=== PATIENT | male | born 1965 | race Hispanic/Latino ===

== ENCOUNTER 2018-07-15 05:16 | Emergency (ER) | payer BC ==
[2018-07-15 05:38] LABS: Absolute Lymphocytes (CBC) 2.8 K/uL (0.7-4.9); Absolute Monocytes 0.5 K/uL (0.1-1.3); Absolute Neutrophil 4.4 K/uL (1.8-8.0); Basophils % 0.6 % (0-1.3); Eosinophils % 1.7 % (0-4.4); Hematocrit 43.8 % (39.6-49.0); Lymphocytes % 35.8 % (15.3-44.8); MPV 8.8 fL (7.6-11.3); Monocytes % 6.8 % (3.3-12.3); RBC Red Blood Cell Count 5.06 M/uL (4.33-5.43)
[2018-07-15] MEDS ORDERED: NA CHLORIDE 0.9% 1,000 ML ONE (05:45)
[2018-07-15] MEDS ORDERED: KETOROLAC 30 MG/ML INJ ONE (05:45)
[2018-07-15 06:09] LABS: Bilirubin Direct 0.2 mg/dL (0-0.2); Bilirubin Total 1.2 mg/dL (0.2-1.0); Protein, Total 7.6 g/dL (6.4-8.2)
--- NOTE | 2018-07-15 07:11 | ER ---
Nurse's Notes [facility] Name: Luis Seth Age: 52 yrs Sex: Male : 1965 Arrival Date: 07/15/2018 Time: 05:17 Bed 20 Private MD: Diagnosis: Calculus of kidney and ureter Presentation: 07/15 05:25 Presenting complaint: Patient states: he started having constant severe back pain bb radiating to his right groin, with nausea, denies dysuria. Transition of care: patient was not received from another setting of care. Onset of symptoms was July 15, 2018. Risk Assessment: Do you want to hurt yourself or someone else? Patient reports no desire to harm self or others. Initial Sepsis Screen: Does the patient meet any 2 criteria? No. Patient's initial sepsis screen is negative. Does the patient have a suspected source of infection? No. Patient's initial sepsis screen is negative. Care prior to arrival: None. 05:25 Method Of Arrival: Ambulatory bb 05:25 Acuity: VINI 3 bb Historical: - Allergies: 05:27 No Known Allergies; bb - Home Meds: 05:27 Doxycycline Oral [Active]; bb - PMHx: 05:27 tooth abscess; bb - PSHx: 05:27 Cholecystectomy; bb - Immunization history:: Adult Immunizations up to date. - Social history:: Smoking status: Patient uses tobacco products, denies chronic smoking, but will smoke occasionally, Patient uses alcohol, occasionally. Patient/guardian denies using street drugs. - Ebola Screening: : No symptoms or risks identified at this time. Screenin:41 Abuse screen: Denies threats or abuse. Denies injuries from another. Nutritional rr5 screening: No deficits noted. Tuberculosis screening: No symptoms or risk factors identified. Fall Risk IV access (20 points). Total Guajardo Fall Scale indicates No Risk (0-24 pts). Assessment: 05:25 General: Appears in no apparent distress. uncomfortable, Behavior is calm, cooperative, rr5 appropriate for age. Pain: Complains of pain in right flank Pain radiates to back and abdomen Pain currently is 10 out of 10 on a pain scale. Quality of pain is described as aching, Pain began suddenly, Is continuous. 05:25 Neuro: Level of Consciousness is awake, alert, obeys commands, Oriented to person, rr5 place, time, situation, Appropriate for age. Cardiovascular: Capillary refill < 3 seconds Patient's skin is warm and dry. Respiratory: Airway is patent Respiratory effort is even, unlabored, Respiratory pattern is regular, symmetrical. GI: Abdomen is round. : Reports pain in right flank(s), in lower back Pain is 10 out of 10 on a pain scale. Denies burning with urination, cramping. EENT: No signs and/or symptoms were reported regarding the EENT system. Derm: Skin is intact, Skin temperature is warm. Musculoskeletal: Capillary refill < 3 seconds, Range of motion: intact in all extremities. 05:50 Reassessment: Patient appears in no apparent distress at this time. Patient is alert, rr5 oriented x 3, equal unlabored respirations, skin warm/dry/pink. Patient denies pain at this time. Patient states feeling better. Patient states symptoms have improved. 06:30 Reassessment: Patient appears in no apparent distress at this time. Patient is alert, rr5 oriented x 3, equal unlabored respirations, skin warm/dry/pink. pain free. awaiting for CT result. no complaints made. Patient denies pain at this time. Patient states feeling better. Patient states symptoms have improved. 07:22 Reassessment: Patient appears in no apparent distress at this time. Patient and/or tw2 family updated on plan of care and expected duration. Pain level reassessed. Patient is alert, oriented x 3, equal unlabored respirations, skin warm/dry/pink. Patient denies pain at this time. Patient states feeling better. Patient states symptoms have improved. Vital Signs: 05:27 BP 156 / 74; Pulse 56; Resp 18 S; Temp 97.8(O); Pulse Ox 100% on R/A; Weight 81.65 kg bb (R); Height 5 ft. 7 in. (170.18 cm) (R); Pain 10/10; 05:50 BP 105 / 58; Pulse 59; Resp 17; Pulse Ox 99% ; Pain 0/10; rr5 06:30 BP 105 / 61; Pulse 58; Resp 17; Pulse Ox 99% ; Pain 0/10; rr5 07:21 BP 115 / 65; Pulse 62; Resp 17; Pulse Ox 99% on R/A; Pain 0/10; tw2 05:27 Body Mass Index 28.19 (81.65 kg, 170.18 cm) bb ED Course: 05:17 Patient arrived in ED. es 05:26 Triage completed. bb 05:27 Arm band placed on Patient placed in an exam room, on a stretcher, on pulse oximetry. bb Family accompanied patient. 05:30 Robin Good, RN is Primary Nurse. rr5 05:30 Inserted saline lock: 20 gauge in left antecubital area, using aseptic technique. Blood rr5 collected. 05:[address] via wheelchair. rr5 05:55 CT completed. Patient tolerated procedure well. Patient moved back from CT. eh 06:00 Dianne Navarro FNP-C is PHCP. kb 06:00 Iftikhar Cagle MD is Attending Physician. kb 06:01 CT Stone Protocol In Process Unspecified. EDMS 06:[address] Scan. rr5 07:13 Primary Nurse role handed off by Robin Good RN tw2 07:13 Daniela Guzman, RN is Primary Nurse. tw2 07:22 No provider procedures requiring assistance completed. IV discontinued, intact, tw2 bleeding controlled, No redness/swelling at site. Pressure dressing applied. 07:23 . tw2 Administered Medications: 05:37 Drug: NS 0.9% 1000 ml Route: IV; Rate: 1 bolus; Site: left antecubital; rr5 06:39 Follow up: Response: No adverse reaction; IV Status: Completed infusion; IV Intake: rr5 1000ml 05:38 Drug: TORadol 30 mg Route: IVP; Site: left antecubital; rr5 06:36 Follow up: Response: No adverse reaction; Marked relief of symptoms rr5 Intake: 06:39 IV: 1000ml; Total: 1000ml. rr5 Outcome: 07:10 Discharge ordered by . kb 07:23 Discharged to home ambulatory, with significant other. tw2 07:23 Condition: stable 07:23 Discharge instructions given to patient, significant other, Instructed on discharge instructions, follow up and referral plans. no drinking with medication, no driving heavy equipment, medication usage, Demonstrated understanding of instructions, follow-up care, medications, Prescriptions given X 5 07:24 Patient left the ED. tw2 Signatures: Dispatcher [employer] EDIL Dianne Navarro FNP-C FNP-CkLorraine Hansen Ervin eh Ballard, Brenda, RN RN bb Daniela Guzman RN RN tw2 Robin Good RN RN rr5 Corrections: (The following items were deleted from the chart) 06:33 06:29 Awaiting lab results, Awaiting CT Scan, rr5 rr5
--- NOTE | 2018-07-15 07:11 | EDPHYS ---
Physician Documentation [facility] Name: Luis Seth Age: 52 yrs Sex: Male : 1965 Arrival Date: 07/15/2018 Time: 05:17 Bed 20 Private MD: ED Physician Iftikhar Cagle HPI: 07/15 06:25 This 52 yrs old Male presents to ER via Ambulatory with complaints of Back kb Pain, Flank Pain, Abdominal Pain, Nausea. 06:25 The patient complains of pain in the right flank. The pain radiates to the groin, right kb inguinal area and right iliac crest. Onset: The symptoms/episode began/occurred this morning, at 04:00. Modifying factors: The symptoms are alleviated by nothing. the symptoms are aggravated by nothing. Associated signs and symptoms: The patient has no apparent associated signs or symptoms. Severity of pain: At its worst the pain was moderate in the emergency department the pain has resolved. The patient has not experienced similar symptoms in the past. The patient has not recently seen a physician. Pt reports right flank pain that woke him up at 0400 this morning. Pain radiates around to right groin. Denies urinary symptoms or history of kidney stone. States he had a momentary pain similar to this last week, but it only lasted a few minutes and never came back until today. Pain is resolved at this time. . Historical: - Allergies: 05:27 No Known Allergies; bb - Home Meds: 05:27 Doxycycline Oral [Active]; bb - PMHx: 05:27 tooth abscess; bb - PSHx: 05:27 Cholecystectomy; bb - Immunization history:: Adult Immunizations up to date. - Social history:: Smoking status: Patient uses tobacco products, denies chronic smoking, but will smoke occasionally, Patient uses alcohol, occasionally. Patient/guardian denies using street drugs. - Ebola Screening: : No symptoms or risks identified at this time. ROS: 06:24 Constitutional: Negative for fever, chills, and weight loss, ENT: Negative for injury, kb pain, and discharge, Neck: Negative for injury, pain, and swelling, Cardiovascular: Negative for chest pain, palpitations, and edema, Respiratory: Negative for shortness of breath, cough, wheezing, and pleuritic chest pain, : Negative for injury, bleeding, discharge, and swelling, MS/Extremity: Negative for injury and deformity, Skin: Negative for injury, rash, and discoloration, Neuro: Negative for headache, weakness, numbness, tingling, and seizure. 06:24 Abdomen/GI: Positive for abdominal pain. 06:24 Back: Positive for flank pain, on the right. Exam: 06:24 Constitutional: This is a well developed, well nourished patient who is awake, alert, kb and in no acute distress. Head/Face: Normocephalic, atraumatic. ENT: Nares patent. No nasal discharge, no septal abnormalities noted. Tympanic membranes are normal and external auditory canals are clear. Oropharynx with no redness, swelling, or masses, exudates, or evidence of obstruction, uvula midline. Mucous membranes moist. Neck: Trachea midline, no thyromegaly or masses palpated, and no cervical lymphadenopathy. Supple, full range of motion without nuchal rigidity, or vertebral point tenderness. No Meningismus. Chest/axilla: Normal chest wall appearance and motion. Nontender with no deformity. No lesions are appreciated. Cardiovascular: Regular rate and rhythm with a normal S1 and S2. No gallops, murmurs, or rubs. Normal PMI, no JVD. No pulse deficits. Respiratory: Lungs have equal breath sounds bilaterally, clear to auscultation and percussion. No rales, rhonchi or wheezes noted. No increased work of breathing, no retractions or nasal flaring. Abdomen/GI: Soft, non-tender, with normal bowel sounds. No distension or tympany. No guarding or rebound. No evidence of tenderness throughout. Skin: Warm, dry with normal turgor. Normal color with no rashes, no lesions, and no evidence of cellulitis. MS/ Extremity: Pulses equal, no cyanosis. Neurovascular intact. Full, normal range of motion. Neuro: Awake and alert, GCS 15, oriented to person, place, time, and situation. Cranial nerves II-XII grossly intact. Motor strength 5/5 in all extremities. Sensory grossly intact. Cerebellar exam normal. Normal gait. Vital Signs: 05:27 BP 156 / 74; Pulse 56; Resp 18 S; Temp 97.8(O); Pulse Ox 100% on R/A; Weight 81.65 kg bb (R); Height 5 ft. 7 in. (170.18 cm) (R); Pain 10/10; 05:50 BP 105 / 58; Pulse 59; Resp 17; Pulse Ox 99% ; Pain 0/10; rr5 06:30 BP 105 / 61; Pulse 58; Resp 17; Pulse Ox 99% ; Pain 0/10; rr5 07:21 BP 115 / 65; Pulse 62; Resp 17; Pulse Ox 99% on R/A; Pain 0/10; tw2 05:27 Body Mass Index 28.19 (81.65 kg, 170.18 cm) bb MDM: 05:25 Patient medically screened. tw4 06:24 Data reviewed: vital signs, nurses notes. Data interpreted: Pulse oximetry: on room air kb is 99 %. Interpretation: normal. 07:08 Counseling: I had a detailed discussion with the patient and/or guardian regarding: the kb historical points, exam findings, and any diagnostic results supporting the discharge/admit diagnosis, lab results, radiology results, the need for outpatient follow up, a family practitioner, a urologist, to return to the emergency department if symptoms worsen or persist or if there are any questions or concerns that arise at home. 07/15 05:27 Order name: Basic Metabolic Panel; Complete Time: 06:12 07/15 05:27 Order name: CBC with Diff; Complete Time: 06:06 07/15 05:27 Order name: Creatinine for Radiology; Complete Time: 06:06 07/15 05:27 Order name: Hepatic Function; Complete Time: 06:12 07/15 05:27 Order name: Lipase; Complete Time: 06:12 07/15 05:27 Order name: CT Stone Protocol 07/15 05:27 Order name: IV Saline Lock; Complete Time: 05:37 07/15 05:27 Order name: Labs collected and sent; Complete Time: 05:37 tw4 Administered Medications: 05:37 Drug: NS 0.9% 1000 ml Route: IV; Rate: 1 bolus; Site: left antecubital; rr5 06:39 Follow up: Response: No adverse reaction; IV Status: Completed infusion; IV Intake: rr5 1000ml 05:38 Drug: TORadol 30 mg Route: IVP; Site: left antecubital; rr5 06:36 Follow up: Response: No adverse reaction; Marked relief of symptoms rr5 Disposition: 18:21 Co-signature as Attending Physician, Iftikhar Cagle MD I agree with the assessment and tw4 plan of care. Disposition: 07/15/18 07:10 Discharged to Home. Impression: Calculus of kidney and ureter. - Condition is Stable. - Discharge Instructions: Kidney Stones, [id number], Dietary Guidelines to Help Prevent Kidney Stones. - Prescriptions for Tylenol- Codeine #3 300-30 mg Oral Tablet - take 1 tablet by ORAL route every 6 hours As needed; 15 tablet. Zofran 4 mg Oral Tablet - take 1 tablet by ORAL route every 6 hours As needed; 20 tablet. Flomax 0.4 mg Oral Capsule, Sust. Release 24 hr - take 1 capsule by ORAL route once daily 1/2 hour following the same meal each day; 10 capsule. Diclofenac Sodium 75 mg Oral Tablet, Delayed Release (E.C.) - take 1 tablet by ORAL route 2 times per day As needed; 30 tablet. Macrobid 100 mg Oral Capsule - take 1 capsule by ORAL route every 12 hours for 7 days; 14 capsule. - Medication Reconciliation Form, Thank You Letter, Antibiotic Education, Prescription Opioid Use, Work release form form. - Follow up: Private Physician; When: 2 - 3 days; Reason: Recheck today's complaints, Continuance of care, Re-evaluation by your physician. Follow up: Emergency Department; When: As needed; Reason: Worsening of condition. Signatures: Dispatcher [employer] EDNE Dianne Navarro, LEILANI PINEDO-Viv Jose RN RN bb Daniela Guzman RN RN tw2 Iftikhar Cagle MD MD tw4 Robin Good RN RN rr5 Corrections: (The following items were deleted from the chart) 07:24 07:10 07/15/2018 07:10 Discharged to Home. Impression: Calculus of kidney and ureter. tw2 Condition is Stable. Discharge Instructions: Kidney Stones, [id number], Dietary Guidelines to Help Prevent Kidney Stones. Prescriptions for Tylenol-Codeine #3 300-30 mg Oral Tablet - take 1 tablet by ORAL route every 6 hours As needed; 15 tablet, Zofran 4 mg Oral Tablet - take 1 tablet by ORAL route every 6 hours As needed; 20 tablet, Flomax 0.4 mg Oral Capsule, Sust. Release 24 hr - take 1 capsule by ORAL route once daily 1/2 hour following the same meal each day; 10 capsule, Diclofenac Sodium 75 mg Oral Tablet, Delayed Release (E.C.) - take 1 tablet by ORAL route 2 times per day As needed; 30 tablet, Macrobid 100 mg Oral Capsule - take 1 capsule by ORAL route every 12 hours for 7 days; 14 capsule. and Forms are Medication Reconciliation Form, Thank You Letter, Antibiotic Education, Prescription Opioid Use. Follow up: Private Physician; When: 2 - 3 days; Reason: Recheck today's complaints, Continuance of care, Re-evaluation by your physician. Follow up: Emergency Department; When: As needed; Reason: Worsening of condition. kb
--- NOTE | 2018-07-15 12:29 | RAD REPORT ---
EXAM DESCRIPTION: CT Abdomen and Pelvis Without Intravenous Contrast CLINICAL HISTORY: The patient is 52 years old and is Male; PAIN TECHNIQUE: Axial computed tomography images of the abdomen and pelvis without intravenous contrast. Sagittal and coronal reformatted images were created and reviewed. This CT exam was performed usi ng one or more of the following dose reduction techniques: automated exposure control, adjustment o f the mA and/or kV according to patient size, and/or use of iterative reconstruction technique. COMPARISON: No relevant prior studies available. FINDINGS: Lung bases: Unremarkable. No mass. No consolidation. ABDOMEN: Liver: The liver is mildly fatty prominent. Gallbladder and bile ducts: Surgical clips are present in the right upper quadrant, consistent w ith previous cholecystectomy. Pancreas: Unremarkable. No ductal dilation. Spleen: Unremarkable. Adrenals: Unremarkable. No mass. Kidneys and ureters: Mild right hydroureteronephrosis present secondary to a 3 mm right UVJ calc ulus. Edema of the right kidney with associated perinephric and periureteral stranding is present. The left kidney is normal. Stomach and bowel: Stomach is minimally fluid filled. The small bowel is normal in caliber. A mo derate amount of stool is present throughout the colon. There is no mucosal thickening or evidence of bowel obstruction. PELVIS: Appendix: The appendix is normal in caliber without surrounding inflammation. Bladder: The bladder is well distended. No stones. Reproductive: Unremarkable as visualized. ABDOMEN and PELVIS: Intraperitoneal space: Unremarkable. No free air. No significant fluid collection. Bones/joints: Degenerative change of the lower lumbar spine is present, most prominent at L5-S1 with near complete obliteration of the intervertebral disc space. Soft tissues: The soft tissues are normal. Vasculature: Unremarkable. No abdominal aortic aneurysm. Lymph nodes: Unremarkable. No enlarged lymph nodes. IMPRESSION: Mild right hydroureteronephrosis present secondary to a 3 mm right UVJ calculus. Electronically signed by: Breanne Lisa MD 07/15/2018 6:07 AM UNLEAVENED [employer] Due to temporary technical issues with the PACS/Fluency reporting system, reports are being signed by the in house radiologist as a courtesy to ensure prompt reporting. The interpreting radiologist is f ully responsible for the content of the report.
== END 2018-07-15 07:24 | disposition home or self-care (01) ==
LOC: ER 05:16
DX: N20.2 Calculus of kidney with calculus of ureter (principal); Z72.0 Tobacco use
CPT/HCPCS: 36415; 74176; 76377; 80048; 80076; 83690; 85025; J7030